=== PATIENT | female | born 1960 ===

== ENCOUNTER → 2021-01-08 11:13 | Outpatient (CLI) | payer OTHER, SELFPAY ==
--- NOTE | 2021-01-08 | DI.MG.S_ITS ---
BILATERAL DIGITAL SCREENING MAMMOGRAM 3D/2D WITH CAD: 01/08/2021 CLINICAL: Routine screening. Family history of breast cancer. Comparison is made to exams dated: 01/25/2011 mammogram and 03/24/2015 mammogram - [facility]. There are scattered fibroglandular elements in both breasts. Current study was also evaluated with a Computer Aided Detection (CAD) system. No significant masses, calcifications, or other findings are seen in either breast. There has been no significant interval change. IMPRESSION: NEGATIVE There is no mammographic evidence of malignancy. A 1 year screening mammogram is recommended. This exam was interpreted at Station ID: [id number]. NOTE: For mammograms, a report in lay terms will be sent to the patient. Approximately 15% of breast malignancies will not be visualized mammographically. In the management of a palpable breast mass, a negative mammogram must not discourage biopsy of a clinically suspicious lesion. Electronically Signed By: Tom Joyner M.D., [email or web address]/koki:01/08/2021 11:53:02 letter sent: Normal Exam ACR BI-RADS Category 1: Negative [id number]
== END ==
PROVIDERS: PCP Student in an Organized Health Care Education/Training Program; Referring Provider Student in an Organized Health Care Education/Training Program; Visit Provider Student in an Organized Health Care Education/Training Program
DX: Z12.31 Encounter for screening mammogram for malignant neoplasm of breast (principal); Z80.3 Family history of malignant neoplasm of breast
CPT/HCPCS: 77063; 77067

== ENCOUNTER 2021-07-16 13:20 | Emergency (ER) | payer OTHER, SELFPAY ==
[2021-07-16] VITALS (9 sets, daily range): BP systolic 112–135; BP diastolic 62–80; PULSE 60–76; RESP 14–16; TEMP 36.1–36.9; O2SAT 97–99; BMI 25.7
[2021-07-16 15:57] LABS: Bacteria Urine Few (2-10); Culture Indicated Urine Specimen Cultured; RBC Urine 0-1/HPF (0-5/HPF); Squamous Epithelial Cell Urine 1-5 /HPF (0-5/HPF); Transitional Epi Cells Urine 1-5/HPF (0-5/HPF); WBC Urine 5-10/HPF (0-5/HPF)
--- NOTE | 2021-07-16 16:09 | ED.RECABL ---
HPI - Recheck/Abnormal Lab/Rx <JACLYN Prather - Last Filed: 07/16/21 20:49> General Chief Complaint: Recheck/Abnormal Lab/Rx Stated Complaint: Abnormal labs- liver. [facility] Time Seen by Provider: 07/16/21 16:07 Source: patient Mode of arrival: Ambulatory History of Present Illness HPI narrative: 61-year-old female presents to the emergency department after being sent over from the [facility] for elevated liver enzymes. Patient was recently in [place] and she flew back approximately 1 month ago. She denies any new medications, denies any toxic exposure endorses having a URI and cold symptoms while in [place] but tested negative for COVID before she went there, and before she came home. Patient denies any respiratory symptoms at this time. She states that she is up-to-date on her vaccinations, denies a history of hepatitis, states having a history of esophageal stricture repair and hysterectomy as well as a right hip replacement in 2014. Patient went to the [email or web address] for orange colored urine this morning. She was told that her AST was in the 3000, and to go to the emergency department for evaluation. She has a follow-up appointment scheduled tomorrow with her primary care provider. Patient denies any nausea vomiting, she denies any pain at this time, she does say that she has had some lower abdominal discomfort and dysuria for the last 2 days. Related Data Allergies Allergy/AdvReac Type Severity Reaction Status Date / Time No Known Drug Allergies Allergy Verified 07/16/21 13:25 Review of Systems <JACLYN Prather - Last Filed: 07/16/21 20:49> Review of Systems Narrative: General: denies fever, chills, malaise, sweats, fatigue Head/Neck: denies headache, neck pain, dizziness Eyes: denies visual changes, eye pain Cardio: denies chest pain, palpitations, edema Respiratory: denies dyspnea, cough, orthopnea GI: denies abdominal pain, nausea, vomiting, or diarrhea : Endorses dysuria and bright orange colored urine, denies hematuria, urinary retention, frequency or incontinence MSK: denies joint pain, muscle weakness Skin: denies rash, itching, skin lesions or other Neuro: denies numbness, tingling Patient History <JACLYN Prather - Last Filed: 07/16/21 20:49> Social History Smoking Status: Unknown if ever smoked Smoking Status: Unknown if ever smoked alcohol intake frequency: a few times a week Alcohol type: wine Substance Use Type: does not use Exam <JACLYN Prather - Last Filed: 07/16/21 20:49> Narrative Exam Narrative: Independently reviewed vitals signs and nursing notes. General: Cooperative, comfortable, in no acute distress, well developed and well groomed Head/Neck: Normal visual inspection and supple, atraumatic, no JVD or lymphadenopathy. Normal facial exam Eyes: Pupils equal round and reactive, EOMI, conjunctiva normal, + scleral icterus Nose: External nose normal, nares patent, no rhinorrhea, without purulent drainage Mouth/Throat: uvula midline, moist mucus membranes Cardio: Regular rate and rhythm, no peripheral edema, warm extremities Respiratory: Normal respiratory effort, able to speak in complete sentences without audible wheezing, stridor, or rales. No retractions. GI: Abdomen soft, nontender to palpation x4 quadrants, nondistended, no masses or exquisite tenderness with exam, no flank tenderness MSK: Moves all extremities, neurovascularly intact Skin: Normal capillary refill, no rash, jaundiced Neuro: Normal speech and cognition, normal gait, A&O x3, tone normal, moves all extremities Psych: Mental status is grossly normal, speech is clear, congruent mood, normal affect Initial Vital Signs Initial Vital Signs: Vital Signs Temperature 97.0 F L 07/16/21 13:25 Pulse Rate 76 07/16/21 13:25 Respiratory Rate 14 07/16/21 13:25 Blood Pressure 128/62 07/16/21 13:25 Pulse Oximetry 98 07/16/21 13:25 <Bry Grayson DO - Last Filed: 07/23/21 18:03> Initial Vital Signs Initial Vital Signs: Vital Signs Temperature 97.0 F L 07/16/21 13:25 Pulse Rate 76 07/16/21 13:25 Respiratory Rate 14 07/16/21 13:25 Blood Pressure 128/62 07/16/21 13:25 Pulse Oximetry 98 07/16/21 13:25 Course <JACLYN Prather - Last Filed: 07/16/21 20:49> Orders Ordered: Discontinued Medications Ketorolac Tromethamine (Ketorolac 30 Mg/Ml Vial) 15 mg IV NOW ONE Stop: 07/16/21 18:37 Last Admin: 07/16/21 18:43 Dose: 15 mg Documented by: CONNIE Nitrofurantoin Macrocrystals (Nitrofurantoin Er 100 Mg Capsule) 100 mg PO NOW ONE Stop: 07/16/21 17:24 Last Admin: 07/16/21 18:03 Dose: 100 mg Documented by: VIDALOR Vital Signs Vital signs: Vital Signs - 8 hr 07/16/21 13:25 07/16/21 16:22 07/16/21 16:23 Temperature 97.0 F L Pulse Rate 76 71 71 Respiratory Rate 14 Blood Pressure 128/62 124/69 Pulse Oximetry 98 98 97 07/16/21 16:30 07/16/21 17:00 07/16/21 17:30 Temperature Pulse Rate 69 68 65 Respiratory Rate Blood Pressure 112/65 133/72 Pulse Oximetry 97 99 99 07/16/21 18:00 07/16/21 18:05 07/16/21 18:56 Temperature 98.4 F Pulse Rate 65 67 60 Respiratory Rate 16 Blood Pressure 124/64 135/80 Pulse Oximetry 97 99 99 <Bry Grayson DO - Last Filed: 07/23/21 18:03> Orders Ordered: Discontinued Medications Ketorolac Tromethamine (Ketorolac 30 Mg/Ml Vial) 15 mg IV NOW ONE Stop: 07/16/21 18:37 Last Admin: 07/16/21 18:43 Dose: 15 mg Documented by: CONNIE Nitrofurantoin Macrocrystals (Nitrofurantoin Er 100 Mg Capsule) 100 mg PO NOW ONE Stop: 07/16/21 17:24 Last Admin: 07/16/21 18:03 Dose: 100 mg Documented by: VIDALOR Vital Signs Vital signs: Vital Signs - 8 hr 07/16/21 13:25 07/16/21 16:22 07/16/21 16:23 Temperature 97.0 F L Pulse Rate 76 71 71 Respiratory Rate 14 Blood Pressure 128/62 124/69 Pulse Oximetry 98 98 97 07/16/21 16:30 07/16/21 17:00 07/16/21 17:30 Temperature Pulse Rate 69 68 65 Respiratory Rate Blood Pressure 112/65 133/72 Pulse Oximetry 97 99 99 07/16/21 18:00 07/16/21 18:05 07/16/21 18:56 Temperature 98.4 F Pulse Rate 65 67 60 Respiratory Rate 16 Blood Pressure 124/64 135/80 Pulse Oximetry 97 99 99 [facility] - Recheck/Abnormal Lab/Rx <Anushka Eliane Sanchez, [facility] - Last Filed: 07/16/21 20:49> Lab Data Result diagrams: 07/16/21 16:19 07/16/21 16:19 Labs: Lab Results 07/16/21 07/16/21 07/16/21 Range/Units 15:23 15:23 16:19 WBC 5.4 (4.5-11.0) X10^3/uL RBC 4.50 (4.0-5.2) X10^6/uL Hgb 14.3 (12.0-16.0) g/dL Hct 42.1 (36-46) % MCV 93.6 (80-100) fL MCH 31.8 (26-34) PG MCHC 33.9 (30-36) % RDW 12.7 (11.6-14.8) % Plt Count 122 L (150-400) X10^3/uL Neut % (Auto) Not Reportable Lymph % (Auto) Not Reportable [place] % (Auto) Not Reportable Eos % (Auto) Not Reportable Baso % (Auto) Not Reportable Lymph # (Auto) Not Reportable [place] # (Auto) Not Reportable Baso # (Auto) Not Reportable Total Counted 100 Seg Neutrophils % 24.0 L (38-70) % Band Neutrophils % 2.0 L (3-7) % Lymphocytes % (Manual) 39.0 (25-45) % Atypical Lymphs % 13.0 H ( - 0) % Monocytes % (Manual) 18.0 H (2-11) % Eosinophils % (Manual) 2.0 (2-4) % Basophils % (Manual) 2.0 H (0-1) % Neutrophils # (Manual) 1404 L (6621-2362) /uL Platelet Estimate Decreased on smear Plt Morphology Comment Note RBC Morphology Normal morphology PT (10.1-12.7) SECONDS INR (0.9-1.3) Sodium (137-145) mmol/L Potassium (3.4-5.1) mmol/L Chloride (98-107) mmol/L Carbon Dioxide (22-32) mmol/L BUN (7-17) mg/dL Creatinine (0.52-1.04) mg/dL Estimated GFR (>60) mL/min BUN/Creatinine Ratio (6-22) Glucose (70-100) mg/dL Calcium (8.4-10.2) mg/dL Magnesium (1.6-2.3) mg/dL Total Bilirubin (0.2-1.3) mg/dL Conjugated Bilirubin (0.0-0.3) md/dL Unconjugated Bilirubin (0.0-1.1) mg/dL AST (14-36) IU/L ALT (<35) IU/L Alkaline Phosphatase (38-126) U/L Ammonia (9-30) umol/L Total Protein (6.3-8.2) g/dL Albumin (3.5-5.0) g/dL Globulin (1.7-4.1) g/dL Albumin/Globulin Ratio (1.0-2.8) Lipase (23-300) U/L Urine RBC 0-1/hpf (0-5/HPF) Urine WBC 5-10/hpf H (0-5/HPF) Ur Squamous Epith Cells 1-5 /hpf (0-5/HPF) Ur Transition Epith Cell 1-5/hpf (0-5/HPF) Urine Bacteria Few (2-10) H (None) Ur Culture Indicated? Specimen cultured U Opiates 300ng/mL cut Negative (Negative) Ur Oxycodone Screen Negative (Negative) Urine Methadone Screen Negative (Negative) Acetaminophen (10-30) ug/mL Ur Barbiturates Screen Negative (Negative) U Tricyclic Antidepress Negative (Negative) Ur Phencyclidine Scrn Negative (Negative) Ur Amphetamines Screen Negative (Negative) U Methamphetamines Scrn Negative (Negative) Ur MDMA Scrn (Ecstasy) Negative (Negative) U Benzodiazepines Scrn Negative (Negative) Urine Cocaine Screen Negative (Negative) U Marijuana (THC) Screen Negative (Negative) Ethyl Alcohol ( - 10) mg/dL Hepatitis A IgM Ab (Negative) Hep Bs Antigen (Negative) Hep B Core IgM Ab (Negative) Hepatitis C Antibody (0.0-0.9) s/co ratio Hep C Ab Signal/Cutoff (.) 07/16/21 07/16/21 07/16/21 Range/Units 16:19 16:19 16:19 WBC (4.5-11.0) X10^3/uL RBC (4.0-5.2) X10^6/uL Hgb (12.0-16.0) g/dL Hct (36-46) % MCV (80-100) fL MCH (26-34) PG MCHC (30-36) % RDW (11.6-14.8) % Plt Count (150-400) X10^3/uL Neut % (Auto) Lymph % (Auto) [place] % (Auto) Eos % (Auto) Baso % (Auto) Lymph # (Auto) [place] # (Auto) Baso # (Auto) Total Counted Seg Neutrophils % (38-70) % Band Neutrophils % (3-7) % Lymphocytes % (Manual) (25-45) % Atypical Lymphs % ( - 0) % Monocytes % (Manual) (2-11) % Eosinophils % (Manual) (2-4) % Basophils % (Manual) (0-1) % Neutrophils # (Manual) (6709-6903) /uL Platelet Estimate Plt Morphology Comment RBC Morphology PT 13.2 H (10.1-12.7) SECONDS INR 1.2 (0.9-1.3) Sodium 140 (137-145) mmol/L Potassium 3.5 (3.4-5.1) mmol/L Chloride 102 (98-107) mmol/L Carbon Dioxide 32 (22-32) mmol/L BUN 9 (7-17) mg/dL Creatinine 0.56 (0.52-1.04) mg/dL Estimated GFR > 60.0 (>60) mL/min BUN/Creatinine Ratio 16.1 (6-22) Glucose 114 H (70-100) mg/dL Calcium 9.2 (8.4-10.2) mg/dL Magnesium 2.2 (1.6-2.3) mg/dL Total Bilirubin 3.4 H (0.2-1.3) mg/dL Conjugated Bilirubin 1.4 H (0.0-0.3) md/dL Unconjugated Bilirubin 1.0 (0.0-1.1) mg/dL AST 3128 H (14-36) IU/L ALT 3551 H (<35) IU/L Alkaline Phosphatase 311 H (38-126) U/L Ammonia 14 (9-30) umol/L Total Protein 8.6 H (6.3-8.2) g/dL Albumin 4.5 (3.5-5.0) g/dL Globulin 4.1 (1.7-4.1) g/dL Albumin/Globulin Ratio 1.1 (1.0-2.8) Lipase 280 (23-300) U/L Urine RBC (0-5/HPF) Urine WBC (0-5/HPF) Ur Squamous Epith Cells (0-5/HPF) Ur Transition Epith Cell (0-5/HPF) Urine Bacteria (None) Ur Culture Indicated? U Opiates 300ng/mL cut (Negative) Ur Oxycodone Screen (Negative) Urine Methadone Screen (Negative) Acetaminophen (10-30) ug/mL Ur Barbiturates Screen (Negative) U Tricyclic Antidepress (Negative) Ur Phencyclidine Scrn (Negative) Ur Amphetamines Screen (Negative) U Methamphetamines Scrn (Negative) Ur MDMA Scrn (Ecstasy) (Negative) U Benzodiazepines Scrn (Negative) Urine Cocaine Screen (Negative) U Marijuana (THC) Screen (Negative) Ethyl Alcohol ( - 10) mg/dL Hepatitis A IgM Ab (Negative) Hep Bs Antigen (Negative) Hep B Core IgM Ab (Negative) Hepatitis C Antibody (0.0-0.9) s/co ratio Hep C Ab Signal/Cutoff (.) 07/16/21 07/16/21 07/16/21 Range/Units 16:19 16:19 17:38 WBC (4.5-11.0) X10^3/uL RBC (4.0-5.2) X10^6/uL Hgb (12.0-16.0) g/dL Hct (36-46) % MCV (80-100) fL MCH (26-34) PG MCHC (30-36) % RDW (11.6-14.8) % Plt Count (150-400) X10^3/uL Neut % (Auto) Lymph % (Auto) [place] % (Auto) Eos % (Auto) Baso % (Auto) Lymph # (Auto) [place] # (Auto) Baso # (Auto) Total Counted Seg Neutrophils % (38-70) % Band Neutrophils % (3-7) % Lymphocytes % (Manual) (25-45) % Atypical Lymphs % ( - 0) % Monocytes % (Manual) (2-11) % Eosinophils % (Manual) (2-4) % Basophils % (Manual) (0-1) % Neutrophils # (Manual) (3759-1391) /uL Platelet Estimate Plt Morphology Comment RBC Morphology PT (10.1-12.7) SECONDS INR (0.9-1.3) Sodium (137-145) mmol/L Potassium (3.4-5.1) mmol/L Chloride (98-107) mmol/L Carbon Dioxide (22-32) mmol/L BUN (7-17) mg/dL Creatinine (0.52-1.04) mg/dL Estimated GFR (>60) mL/min BUN/Creatinine Ratio (6-22) Glucose (70-100) mg/dL Calcium (8.4-10.2) mg/dL Magnesium (1.6-2.3) mg/dL Total Bilirubin (0.2-1.3) mg/dL Conjugated Bilirubin (0.0-0.3) md/dL Unconjugated Bilirubin (0.0-1.1) mg/dL AST (14-36) IU/L ALT (<35) IU/L Alkaline Phosphatase (38-126) U/L Ammonia (9-30) umol/L Total Protein (6.3-8.2) g/dL Albumin (3.5-5.0) g/dL Globulin (1.7-4.1) g/dL Albumin/Globulin Ratio (1.0-2.8) Lipase (23-300) U/L Urine RBC (0-5/HPF) Urine WBC (0-5/HPF) Ur Squamous Epith Cells (0-5/HPF) Ur Transition Epith Cell (0-5/HPF) Urine Bacteria (None) Ur Culture Indicated? U Opiates 300ng/mL cut (Negative) Ur Oxycodone Screen (Negative) Urine Methadone Screen (Negative) Acetaminophen < 10 L (10-30) ug/mL Ur Barbiturates Screen (Negative) U Tricyclic Antidepress (Negative) Ur Phencyclidine Scrn (Negative) Ur Amphetamines Screen (Negative) U Methamphetamines Scrn (Negative) Ur MDMA Scrn (Ecstasy) (Negative) U Benzodiazepines Scrn (Negative) Urine Cocaine Screen (Negative) U Marijuana (THC) Screen (Negative) Ethyl Alcohol < 10 ( - 10) mg/dL Hepatitis A IgM Ab Positive A (Negative) Hep Bs Antigen Negative (Negative) Hep B Core IgM Ab Negative (Negative) Hepatitis C Antibody <0.1 (0.0-0.9) s/co ratio Hep C Ab Signal/Cutoff Comment (.) Urine Dip Bedside Urine Glucose Negative Bedside Urine Bilirubin - Negative Bedside Urine Ketone - Negative Urine Specific [place] 1.010 Bedside Urine Occult Blood +/- Bedside Urine pH 6.0 Bedside Urine Protein - Negative Bedside Urine Urobilinogen - Negative Bedside Urine Nitrite - Negative Bedside Urine Leukocytes - Negative Esterase Imaging Data CT scan - abdomen/pelvis: Radiologist's Impression: PROCEDURE:? CT ABDOMEN PELVIS W CON ? INDICATIONS:? elevated liver enzymes, acute hepatitis ? TECHNIQUE:? After the administration of intravenous contrast, axial sections acquired from the lung bases to the pubic symphysis.? Coronal and sagittal reformats were performed.? For radiation dose reduction, the following was used:? automated exposure control, adjustment of mA and/or kV according to patient size.? ? COMPARISON:? None. ? FINDINGS:? Image quality:? Excellent.? ? Lung bases:? Unremarkable.? Small hiatal hernia present. Heart:? No significant findings. ? ABDOMEN: Liver: The liver is diffusely decreased in attenuation without focal mass lesion.? There is irregular peripheral vague hepatic enhancement . Gallbladder:? Gallbladder is contracted shows mucosal enhancement without pericholecystic inflammatory change. Biliary ducts:? Unremarkable.? ? Pancreas:? Unremarkable.? ? Spleen:? Unremarkable.? ? Adrenal Glands:? Unremarkable.? ? Kidneys and Ureters:? Unremarkable.? ? ? Stomach and Bowel:? Stomach, small bowel loops, and colon are unremarkable.? Peritoneum:? No abnormal intraperitoneal fluid.? No free air.? ? Ventral Wall: ? No hernias.? Abdominal Nodes:? No retroperitoneal or mesenteric adenopathy by size criteria.? Vessels:? Aorta and inferior vena cava are normal in size.? ? PELVIS: Pelvic Organs:? Unremarkable.? ? Bladder:? Unremarkable.? ? Pelvic Nodes: No enlarged lymph nodes.? Miscellaneous: No hernias are seen. ? ? ? Bones:? Right hip prosthesis obscures a multiple images in the pelvis.? Multilevel degenerative disc disease and arthropathy noted in the lower lumbar spine.? Degenerative sacroiliac joints are noted greater on the left. ? ? IMPRESSION:? ? 1. Hepatic fatty infiltration with peripheral enhancement could reflect generalized hepatitis.? No focal mass lesion 2. Gallbladder mucosal enhancement and wall thickening could also be sequelae of hepatitis.? 3. Incidental small hiatal hernia, degenerative disc disease and arthropathy, right hip prosthesis ? Approved by: Neel Sin M.D. on 07/16/2021 at 17:07? US - abdomen: Radiologist's Impression: PROCEDURE: US ABDOMEN LIMITED ? INDICATIONS:? c/f acute hepatitis ? TECHNIQUE:? Real-time focused scanning was performed of the abdomen, with image documentation.? ? COMPARISON:? None. ? FINDINGS:? Liver is normal in size and demonstrates increased echogenicity.? Gallbladder is contracted.? Gallbladder wall is borderline thickened.? No biliary ductal dilatation.? Pancreas is grossly unremarkable as visualized. ? IMPRESSION:? 1. Hepatic steatosis. 2. Contracted gallbladder, limiting evaluation for cholecystitis. ? ? Dictated by: Abdullahi Stahl M.D. on 07/16/2021 at 17:36 ? ? Approved by: Abdullahi Stahl M.D. on 07/16/2021 at 17:37 ? MDM Narrative Medical decision making narrative: 61-year-old female presents [place] emergency department [place]. Patient went to her primary care provider this morning because her urine was dark and she has been having some dysuria and urinary frequency the last 2 days. Patient states she was in [place] 06/18/2021, tested negative for COVID before she came home. She is COVID vaccinated x3. She denies any nausea vomiting, denies any abdominal pain, has not been taking any new medications, she denies any history of hepatitis. She states she has a history of esophageal stricture repair, denies any current difficulty swallowing. States she has a history of hysterectomy as well but no other abdominal surgeries. Patient is without leukocytosis, platelet count of 122, PT of 13.2 is elevated, INR is within normal range at 1.2, T bilirubin elevated to 3.4, conjugated bilirubin 1.4 AST: 3128 ALT: 3551, alk phos 311, ammonia is 14, lipase of 280. UA shows white blood cells, bacteria, culture is pending. Urine drug screen is negative, acetaminophen level is less than 10. Abdominal Ultrasound showed of retracted gallbladder, no evidence of gallstones, mildly enlarged biliary duct, echogenic liver which was mildly enlarged. CT abdomen pelvis shows hepatic fatty infiltration with peripheral enhancement which could reflect generalize hepatitis without focal mass or lesion. Gallbladder mucosal enhancement and wall thickening also could be a sequelae of hepatitis. Incidental small hiatal hernia, degenerative disc disease, arthropathy, right hip prosthesis for all noted in the impression as well. This is most likely acute hepatitis, hepatitis serology is still pending. Low likelihood for this to be toxic, no blood borne exposures reported, no heavy alcohol use. Patient has not had any new medications, her vaccinations are up-to-date, this could be due to a viral illness she had while she was in [place], patient denies any close proximity to anybody else who is sick at this time. Patient is following up with her primary care provider tomorrow morning, she will need a referral for gastroenterology through [facility]. Hopefully at her appointment her hepatitis panel read back by then. She was given Macrobid for acute cystitis and prescribed a 5 day course. Differential diagnoses include autoimmune hepatitis, malignancy, toxins, viral hepatitis, primary biliary cirrhosis, other infections. Patient is appropriate and amenable to discharge home. Vital signs are stable on repeat examination is unremarkable. Patient has been informed of results. Patient has been given strict return to ER precautions for any new or worsening symptoms. Patient understands to follow up closely with outpatient providers as instructed. Patient understands plan and agrees to discharge home. All questions and concerns answered at this time. <Bry Grayson, DO - Last Filed: 07/23/21 18:03> Lab Data Labs: Lab Results 07/16/21 07/16/21 07/16/21 Range/Units 15:23 15:23 16:19 WBC 5.4 (4.5-11.0) X10^3/uL RBC 4.50 (4.0-5.2) X10^6/uL Hgb 14.3 (12.0-16.0) g/dL Hct 42.1 (36-46) % MCV 93.6 (80-100) fL MCH 31.8 (26-34) PG MCHC 33.9 (30-36) % RDW 12.7 (11.6-14.8) % Plt Count 122 L (150-400) X10^3/uL Neut % (Auto) Not Reportable Lymph % (Auto) Not Reportable [place] % (Auto) Not Reportable Eos % (Auto) Not Reportable Baso % (Auto) Not Reportable Lymph # (Auto) Not Reportable [place] # (Auto) Not Reportable Baso # (Auto) Not Reportable Total Counted 100 Seg Neutrophils % 24.0 L (38-70) % Band Neutrophils % 2.0 L (3-7) % Lymphocytes % (Manual) 39.0 (25-45) % Atypical Lymphs % 13.0 H ( - 0) % Monocytes % (Manual) 18.0 H (2-11) % Eosinophils % (Manual) 2.0 (2-4) % Basophils % (Manual) 2.0 H (0-1) % Neutrophils # (Manual) 1404 L (7766-2532) /uL Platelet Estimate Decreased on smear Plt Morphology Comment Note RBC Morphology Normal morphology PT (10.1-12.7) SECONDS INR (0.9-1.3) Sodium (137-145) mmol/L Potassium (3.4-5.1) mmol/L Chloride (98-107) mmol/L Carbon Dioxide (22-32) mmol/L BUN (7-17) mg/dL Creatinine (0.52-1.04) mg/dL Estimated GFR (>60) mL/min BUN/Creatinine Ratio (6-22) Glucose (70-100) mg/dL Calcium (8.4-10.2) mg/dL Magnesium (1.6-2.3) mg/dL Total Bilirubin (0.2-1.3) mg/dL Conjugated Bilirubin (0.0-0.3) md/dL Unconjugated Bilirubin (0.0-1.1) mg/dL AST (14-36) IU/L ALT (<35) IU/L Alkaline Phosphatase (38-126) U/L Ammonia (9-30) umol/L Total Protein (6.3-8.2) g/dL Albumin (3.5-5.0) g/dL Globulin (1.7-4.1) g/dL Albumin/Globulin Ratio (1.0-2.8) Lipase (23-300) U/L Urine RBC 0-1/hpf (0-5/HPF) Urine WBC 5-10/hpf H (0-5/HPF) Ur Squamous Epith Cells 1-5 /hpf (0-5/HPF) Ur Transition Epith Cell 1-5/hpf (0-5/HPF) Urine Bacteria Few (2-10) H (None) Ur Culture Indicated? Specimen cultured U Opiates 300ng/mL cut Negative (Negative) Ur Oxycodone Screen Negative (Negative) Urine Methadone Screen Negative (Negative) Acetaminophen (10-30) ug/mL Ur Barbiturates Screen Negative (Negative) U Tricyclic Antidepress Negative (Negative) Ur Phencyclidine Scrn Negative (Negative) Ur Amphetamines Screen Negative (Negative) U Methamphetamines Scrn Negative (Negative) Ur MDMA Scrn (Ecstasy) Negative (Negative) U Benzodiazepines Scrn Negative (Negative) Urine Cocaine Screen Negative (Negative) U Marijuana (THC) Screen Negative (Negative) Ethyl Alcohol ( - 10) mg/dL Hepatitis A IgM Ab (Negative) Hep Bs Antigen (Negative) Hep B Core IgM Ab (Negative) Hepatitis C Antibody (0.0-0.9) s/co ratio Hep C Ab Signal/Cutoff (.) 07/16/21 07/16/21 07/16/21 Range/Units 16:19 16:19 16:19 WBC (4.5-11.0) X10^3/uL RBC (4.0-5.2) X10^6/uL Hgb (12.0-16.0) g/dL Hct (36-46) % MCV (80-100) fL MCH (26-34) PG MCHC (30-36) % RDW (11.6-14.8) % Plt Count (150-400) X10^3/uL Neut % (Auto) Lymph % (Auto) [place] % (Auto) Eos % (Auto) Baso % (Auto) Lymph # (Auto) [place] # (Auto) Baso # (Auto) Total Counted Seg Neutrophils % (38-70) % Band Neutrophils % (3-7) % Lymphocytes % (Manual) (25-45) % Atypical Lymphs % ( - 0) % Monocytes % (Manual) (2-11) % Eosinophils % (Manual) (2-4) % Basophils % (Manual) (0-1) % Neutrophils # (Manual) (9013-7986) /uL Platelet Estimate Plt Morphology Comment RBC Morphology PT 13.2 H (10.1-12.7) SECONDS INR 1.2 (0.9-1.3) Sodium 140 (137-145) mmol/L Potassium 3.5 (3.4-5.1) mmol/L Chloride 102 (98-107) mmol/L Carbon Dioxide 32 (22-32) mmol/L BUN 9 (7-17) mg/dL Creatinine 0.56 (0.52-1.04) mg/dL Estimated GFR > 60.0 (>60) mL/min BUN/Creatinine Ratio 16.1 (6-22) Glucose 114 H (70-100) mg/dL Calcium 9.2 (8.4-10.2) mg/dL Magnesium 2.2 (1.6-2.3) mg/dL Total Bilirubin 3.4 H (0.2-1.3) mg/dL Conjugated Bilirubin 1.4 H (0.0-0.3) md/dL Unconjugated Bilirubin 1.0 (0.0-1.1) mg/dL AST 3128 H (14-36) IU/L ALT 3551 H (<35) IU/L Alkaline Phosphatase 311 H (38-126) U/L Ammonia 14 (9-30) umol/L Total Protein 8.6 H (6.3-8.2) g/dL Albumin 4.5 (3.5-5.0) g/dL Globulin 4.1 (1.7-4.1) g/dL Albumin/Globulin Ratio 1.1 (1.0-2.8) Lipase 280 (23-300) U/L Urine RBC (0-5/HPF) Urine WBC (0-5/HPF) Ur Squamous Epith Cells (0-5/HPF) Ur Transition Epith Cell (0-5/HPF) Urine Bacteria (None) Ur Culture Indicated? U Opiates 300ng/mL cut (Negative) Ur Oxycodone Screen (Negative) Urine Methadone Screen (Negative) Acetaminophen (10-30) ug/mL Ur Barbiturates Screen (Negative) U Tricyclic Antidepress (Negative) Ur Phencyclidine Scrn (Negative) Ur Amphetamines Screen (Negative) U Methamphetamines Scrn (Negative) Ur MDMA Scrn (Ecstasy) (Negative) U Benzodiazepines Scrn (Negative) Urine Cocaine Screen (Negative) U Marijuana (THC) Screen (Negative) Ethyl Alcohol ( - 10) mg/dL Hepatitis A IgM Ab (Negative) Hep Bs Antigen (Negative) Hep B Core IgM Ab (Negative) Hepatitis C Antibody (0.0-0.9) s/co ratio Hep C Ab Signal/Cutoff (.) 07/16/21 07/16/21 07/16/21 Range/Units 16:19 16:19 17:38 WBC (4.5-11.0) X10^3/uL RBC (4.0-5.2) X10^6/uL Hgb (12.0-16.0) g/dL Hct (36-46) % MCV (80-100) fL MCH (26-34) PG MCHC (30-36) % RDW (11.6-14.8) % Plt Count (150-400) X10^3/uL Neut % (Auto) Lymph % (Auto) [place] % (Auto) Eos % (Auto) Baso % (Auto) Lymph # (Auto) [place] # (Auto) Baso # (Auto) Total Counted Seg Neutrophils % (38-70) % Band Neutrophils % (3-7) % Lymphocytes % (Manual) (25-45) % Atypical Lymphs % ( - 0) % Monocytes % (Manual) (2-11) % Eosinophils % (Manual) (2-4) % Basophils % (Manual) (0-1) % Neutrophils # (Manual) (2266-5260) /uL Platelet Estimate Plt Morphology Comment RBC Morphology PT (10.1-12.7) SECONDS INR (0.9-1.3) Sodium (137-145) mmol/L Potassium (3.4-5.1) mmol/L Chloride (98-107) mmol/L Carbon Dioxide (22-32) mmol/L BUN (7-17) mg/dL Creatinine (0.52-1.04) mg/dL Estimated GFR (>60) mL/min BUN/Creatinine Ratio (6-22) Glucose (70-100) mg/dL Calcium (8.4-10.2) mg/dL Magnesium (1.6-2.3) mg/dL Total Bilirubin (0.2-1.3) mg/dL Conjugated Bilirubin (0.0-0.3) md/dL Unconjugated Bilirubin (0.0-1.1) mg/dL AST (14-36) IU/L ALT (<35) IU/L Alkaline Phosphatase (38-126) U/L Ammonia (9-30) umol/L Total Protein (6.3-8.2) g/dL Albumin (3.5-5.0) g/dL Globulin (1.7-4.1) g/dL Albumin/Globulin Ratio (1.0-2.8) Lipase (23-300) U/L Urine RBC (0-5/HPF) Urine WBC (0-5/HPF) Ur Squamous Epith Cells (0-5/HPF) Ur Transition Epith Cell (0-5/HPF) Urine Bacteria (None) Ur Culture Indicated? U Opiates 300ng/mL cut (Negative) Ur Oxycodone Screen (Negative) Urine Methadone Screen (Negative) Acetaminophen < 10 L (10-30) ug/mL Ur Barbiturates Screen (Negative) U Tricyclic Antidepress (Negative) Ur Phencyclidine Scrn (Negative) Ur Amphetamines Screen (Negative) U Methamphetamines Scrn (Negative) Ur MDMA Scrn (Ecstasy) (Negative) U Benzodiazepines Scrn (Negative) Urine Cocaine Screen (Negative) U Marijuana (THC) Screen (Negative) Ethyl Alcohol < 10 ( - 10) mg/dL Hepatitis A IgM Ab Positive A (Negative) Hep Bs Antigen Negative (Negative) Hep B Core IgM Ab Negative (Negative) Hepatitis C Antibody <0.1 (0.0-0.9) s/co ratio Hep C Ab Signal/Cutoff Comment (.) Urine Dip Bedside Urine Glucose Negative Bedside Urine Bilirubin - Negative Bedside Urine Ketone - Negative Urine Specific [place] 1.010 Bedside Urine Occult Blood +/- Bedside Urine pH 6.0 Bedside Urine Protein - Negative Bedside Urine Urobilinogen - Negative Bedside Urine Nitrite - Negative Bedside Urine Leukocytes - Negative Esterase Discharge Plan Departure Patient Disposition: Home Clinical Impression: Cystitis, Elevated liver enzymes, Hepatitis, Hyperbilirubinemia Instructions: Acute Cystitis, Toxic Hepatitis Activity Restrictions/Additional Instructions: *You have been diagnosed with acute hepatitis with cause unknown, hepatitis labs are still pending, when these results we can call you them. Your CT shows inflammation of your liver without any mass or lesion. Your gallbladder also says show some inflammation without any evidence of gallstones, obstruction, mass, or other. Please follow-up with your primary care provider tomorrow at your appointment which is already scheduled. Please ask about referral to Gastroenterology and treatment for hepatitis. They may call the hospital and get your medical records if you give permission tomorrow. He may have your results by then. Please avoid alcohol, eat a low-fat diet, do not take any Tylenol, you may take ibuprofen every 8 hours as needed for your pain. I hope this is helpful. Please stay hydrated, it will help with your headache., you may take Benadryl as well for your headache and this may help you feel better/sleep. 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 *What to do: *Please continue to take your regular medications as directed. [ x] New medication prescriptions sent to your pharmacy: [[facility]] [ ] New medication written as a paper prescription [ ] No new medications given *Please follow up with your primary care provider in 2-3 days, call for an appointment. Let them know you were seen in the Emergency Department and that we ask that you be seen in follow up. We will electronically transmit a record of today's note if your PCP is in our system *If you do not have a primary care provider please contact the [facility] Resource line at [phone]. They will ask some questions about your medical history and help get you set up with a doctor in the community. *Return to Emergency Department if you should have any new, worsening or concerning symptoms, such as [fever greater than 101F, chills, worsening pain, persistent vomiting or other bothersome symptoms] Referrals: Willa Leonard MD [Primary Care Provider] - As soon as possible <Bry Grayson, - Last Filed: 07/23/21 18:03> Cosign ED Attending Cosmorenitaature Attestation: Dr Grayson Co-Sign Statement: I was available for consultation during this patient's emergency department visit. This chart is signed by myself for administrative purposes only. I did not have direct contact with this patient during this visit. They were seen independently by the APC.
[2021-07-16 16:33] LABS: Hematocrit 42.1 % (36-46); Hemoglobin 14.3 g/dL (12.0-16.0); Mean Corpuscular HGB Conc 33.9 % (30-36); Mean Corpuscular Hemoglobin 31.8 PG (26-34); Mean Corpuscular Volume 93.6 fL (80-100); Platelet Count 122 X10^3/uL (150-400); Red Cell Distribution Width 12.7 % (11.6-14.8); White Blood Cell Count 5.4 X10^3/uL (4.5-11.0)
[2021-07-16 16:34] LABS: Add Manual Diff / Slide Review YES
--- NOTE | 2021-07-16 16:35 | DI.US.S_ITS ---
PROCEDURE: US ABDOMEN LIMITED INDICATIONS: c/f acute hepatitis TECHNIQUE: Real-time focused scanning was performed of the abdomen, with image documentation. COMPARISON: None. FINDINGS: Liver is normal in size and demonstrates increased echogenicity. Gallbladder is contracted. Gallbladder wall is borderline thickened. No biliary ductal dilatation. Pancreas is grossly unremarkable as visualized. IMPRESSION: 1. Hepatic steatosis. 2. Contracted gallbladder, limiting evaluation for cholecystitis. Dictated by: Abdullahi Stahl M.D. on 07/16/2021 at 17:36 Approved by: Abdullahi Stahl M.D. on 07/16/2021 at 17:37
[2021-07-16 16:40] LABS: Albumin 4.5 g/dL (3.5-5.0); Albumin Globulin Ratio 1.1 (1.0-2.8); Alkaline Phosphatase 311 U/L (38-126); BUN Creatinine Ratio 16.1 (6-22); Bilirubin Total 3.4 mg/dL (0.2-1.3); Blood Urea Nitrogen 9 mg/dL (7-17); Calcium 9.2 mg/dL (8.4-10.2); Carbon Dioxide 32 mmol/L (22-32); Chloride 102 mmol/L (98-107); Estimated Glomerular Filt Rate > 60.0 mL/min (>60); Globulin 4.1 g/dL (1.7-4.1); Glucose 114 mg/dL (70-100); HEMOLYSIS < 15 (0-50); Lipase 280 U/L (23-300); Potassium 3.5 mmol/L (3.4-5.1); Sodium 140 mmol/L (137-145); Total Protein 8.6 g/dL (6.3-8.2)
[2021-07-16 16:45] LABS: Ammonia (NH3) 14 umol/L (9-30)
[2021-07-16 16:58] LABS: INR 1.2 (0.9-1.3); Prothrombin Time 13.2 SECONDS (10.1-12.7)
[2021-07-16 17:01] LABS: Acetaminophen < 10 ug/mL (10-30); Ethanol (ETOH) < 10 mg/dL; Neutrophils Absolute Manual 1404 /uL (3000-5900); RBC Morphology Normal Morphology; Total Cells Counted 100
[2021-07-16 17:02] LABS: Platelet Estimate Decreased on smear; Platelet Morphology Comment NOTE
[2021-07-16 17:04] LABS: UR Morphine/Opiate cutoff 300 Negative (Negative); Ur Creatinine Normal (Normal); Ur Specific Gravity Normal (Normal); Urine Amphetamines Negative (Negative); Urine Barbiturates Negative (Negative); Urine Benzodiazepines Negative (Negative); Urine Cocaine Negative (Negative); Urine MDMA Negative (Negative); Urine Methadone Negative (Negative); Urine Methamphetamines Negative (Negative); Urine Oxycodone Negative (Negative); Urine Phencyclidine Negative (Negative); Urine Tetrahydrocannabinol Negative (Negative); Urine Tricyclic Antidepressant Negative (Negative); Urine pH Normal (Normal)
[2021-07-16 17:25] LABS: Bilirubin Conjugated 1.4 md/dL (0.0-0.3); Magnesium 2.2 mg/dL (1.6-2.3)
[2021-07-16 17:26] LABS: Alanine Aminotransferase 3551 IU/L (<35); Aspartate Aminotransferase 3128 IU/L (14-36)
--- NOTE | 2021-07-16 17:29 | DI.CT.S_ITS ---
PROCEDURE: CT ABDOMEN PELVIS W CON INDICATIONS: elevated liver enzymes, acute hepatitis TECHNIQUE: After the administration of intravenous contrast, axial sections acquired from the lung bases to the pubic symphysis. Coronal and sagittal reformats were performed. For radiation dose reduction, the following was used: automated exposure control, adjustment of mA and/or kV according to patient size. COMPARISON: None. FINDINGS: Image quality: Excellent. Lung bases: Unremarkable. Small hiatal hernia present. Heart: No significant findings. ABDOMEN: Liver: The liver is diffusely decreased in attenuation without focal mass lesion. There is irregular peripheral vague hepatic enhancement . Gallbladder: Gallbladder is contracted shows mucosal enhancement without pericholecystic inflammatory change. Biliary ducts: Unremarkable. Pancreas: Unremarkable. Spleen: Unremarkable. Adrenal Glands: Unremarkable. Kidneys and Ureters: Unremarkable. Stomach and Bowel: Stomach, small bowel loops, and colon are unremarkable. Peritoneum: No abnormal intraperitoneal fluid. No free air. Ventral Wall: No hernias. Abdominal Nodes: No retroperitoneal or mesenteric adenopathy by size criteria. Vessels: Aorta and inferior vena cava are normal in size. PELVIS: Pelvic Organs: Unremarkable. Bladder: Unremarkable. Pelvic Nodes: No enlarged lymph nodes. Miscellaneous: No hernias are seen. Bones: Right hip prosthesis obscures a multiple images in the pelvis. Multilevel degenerative disc disease and arthropathy noted in the lower lumbar spine. Degenerative sacroiliac joints are noted greater on the left. IMPRESSION: 1. Hepatic fatty infiltration with peripheral enhancement could reflect generalized hepatitis. No focal mass lesion 2. Gallbladder mucosal enhancement and wall thickening could also be sequelae of hepatitis. 3. Incidental small hiatal hernia, degenerative disc disease and arthropathy, right hip prosthesis Approved by: Neel Sin M.D. on 07/16/2021 at 17:07
[2021-07-16] MEDS: NITROFURANTOIN ER 100 MG CAPSULE PO (18:03)
[2021-07-16] MEDS: KETOROLAC 30 MG/ML VIAL 15 MG IV (18:43)
[2021-07-17 03:38] LABS: HBsAg Screen Negative (Negative); Hepatitis A Antibody IgM Positive (Negative); Hepatitis B Core Antibody IgM Negative (Negative); Hepatitis C Antibody <0.1 s/co ratio (0.0-0.9)
== END 2021-07-16 18:58 | disposition home or self-care (01) ==
PROVIDERS: Emergency Medicine; Emergency Provider Nurse Practitioner Critical Care Medicine; PCP Student in an Organized Health Care Education/Training Program
DX: N30.90 Cystitis, unspecified without hematuria (principal); R74.8 Abnormal levels of other serum enzymes; K75.9 Inflammatory liver disease, unspecified; E80.6 Other disorders of bilirubin metabolism
CPT/HCPCS: 36415; 74177; 76705; 80053; 80074; 80305; 80320; 80329; 81003; 81015; 82140; 82248; 83690; 83735; 85007; 85025; 85610; 87077; 87086; 87186; 96374; 99284; G0480; J1885; Q9967